=== PATIENT | male | born 1965 | race Caucasian/White ===

== ENCOUNTER 2017-10-05 07:38 | Emergency (ER) | payer OTHER ==
[2017-10-05 07:47] VITALS: TEMP 97.8; BMI 27.4
--- NOTE | 2017-10-05 08:25 | PDOC ---
History of Present Illness - General Chief Complaint: Rectal Bleed Stated Complaint: BLOOD IN STOOL Time Seen by Provider: 10/05/17 07:55 History Source: Patient - History of Present Illness Initial Comments: 10/05/17 08:44 Patient is a 51-year-old male past medical history of hyperlipidemia, appendectomy, who presents emergency department today complaining of 15 days of rectal bleeding. Patient states that he has been seeing a lot of bright red blood in the toilet bowl and on his tissue paper when he wipes. He states that this has never happened to him before. Patient also states that approximately 5 days ago he developed crampy left lower quadrant/suprapubic pain. He states that today the pain is a 5 out of 10 and does not radiate. Admits to loose stools and one episode of vomiting. Denies fevers, chills, shortness of breath, chest pain, nausea, constipation, vomiting blood, frequency, urgency and hematuria. Past History - Travel Traveled outside of the country in the last 30 days: No Close contact w/someone who was outside of country & ill: No - Past Medical History Allergies/Adverse Reactions: Allergies Allergy/AdvReac Type Severity Reaction Status Date / Time No Known Allergies Allergy Verified 10/05/17 07:45 Home Medications: Ambulatory Orders NK [No Known Home Medication] 10/05/17 COPD: No Hypercholesterolemia: Yes - Surgical History Appendectomy: Yes - Suicide/Smoking/Psychosocial Hx Smoking History: Never smoked Information on smoking cessation initiated: No Hx Alcohol Use: No Drug/Substance Use Hx: No Substance Use Type: None Review of Systems - Review of Systems Able to Perform ROS?: Yes Comments:: 10/05/17 08:33 CONSTITUTIONAL: Absent: fever, chills, diaphoresis, generalized weakness, malaise, loss of appetite HEENT: Absent: rhinorrhea, nasal congestion, throat pain, throat swelling, difficulty swallowing, mouth swelling, ear pain, eye pain, visual Changes CARDIOVASCULAR: Absent: chest pain, loss of consciousness, palpitations, irregular heart rate, peripheral edema RESPIRATORY: Absent: cough, shortness of breath, dyspnea with exertion, orthopnea, wheezing, stridor, hemoptysis GASTROINTESTINAL: Present: abdominal pain, vomiting, loose stool, blood in the stool. Absent: abdominal distension, nausea, diarrhea, constipation, hematochezia GENITOURINARY: Absent: dysuria, frequency, urgency, hesitancy, hematuria, flank pain, genital pain MUSCULOSKELETAL: Absent: myalgia, arthralgia, joint swelling SKIN: Absent: rash, itching, pallor HEMATOLOGIC/IMMUNOLOGIC: Absent: easy bleeding, easy bruising, lymphadenopathy, frequent infections ENDOCRINE: Absent: unexplained weight gain, unexplained weight loss, heat intolerance, cold intolerance NEUROLOGIC: Absent: headache, focal weakness or paresthesias, dizziness, unsteady gait, seizure, mental status changes, bladder or bowel incontinence PSYCHIATRIC: Absent: anxiety, depression, suicidal or homicidal ideation, hallucinations. Is the patient limited Polish proficient: No *Physical Exam - Vital Signs Last Vital Signs Temp Pulse Resp BP Pulse Ox 97.8 F 97 H 18 149/78 97 10/05/17 07:43 10/05/17 07:43 10/05/17 07:43 10/05/17 07:43 10/05/17 07:43 - Physical Exam Comments: 10/05/17 08:33 GENERAL: Well developed, well nourished. Awake and alert. No acute distress. HEENT: Normocephalic, atraumatic. PERRLA, EOMI. No conjunctival pallor. Sclera are non- icteric. Moist mucous membranes. Oropharynx is clear. NECK: Supple. Full ROM. No JVD. Carotid pulses 2+ and symmetric, without bruits. No thyromegaly. No lymphadenopathy. CARDIOVASCULAR: Regular rate and rhythm. No murmurs, rubs, or gallops. Distal pulses are 2+ and symmetric. PULMONARY: No evidence of respiratory distress. Lungs clear to auscultation bilaterally. No wheezing, rales or rhonchi. ABDOMINAL: TTP of the LLQ, suprapubic region. Soft. Non-distended. No rebound or guarding. No organomegaly. Normoactive bowel sounds. RECTAL: Good rectal tone. External hemorrhoid present at the 6 o clock position. No internal hemorrhoids felt. Unable to feel prostate. Stool pinkish in color. MUSCULOSKELETAL Normal range of motion at all joints. No bony deformities or tenderness. No CVA tenderness. EXTREMITIES: No cyanosis. No clubbing. No edema. No calf tenderness. SKIN: Warm and dry. Normal capillary refill. No rashes. No jaundice. NEUROLOGICAL: Alert, awake, appropriate. Cranial nerves 2-12 intact. No deficits to light touch and temperature in face, upper extremities and lower extremities. No motor deficits in the in face, upper extremities and lower extremities. Normoreflexic in the upper and lower extremities. Normal speech. Toes are down- going bilaterally. Gait is normal without ataxia. PSYCHIATRIC: Cooperative. Good eye contact. Appropriate mood and affect. 10/05/17 08:48 ED Treatment Course - LABORATORY CBC & Chemistry Diagram: 10/05/17 13:58 10/05/17 09:10 *DC/Admit/Observation/Transfer Diagnosis at time of Disposition: External hemorrhoid, Rectal bleeding Diarrhea Qualifiers: Diarrhea type: unspecified type Qualified Code(s): R19.7 - Diarrhea, unspecified - Discharge Dispostion Disposition: HOME Condition at time of disposition: Stable Admit: No - Referrals Referrals: Judd Myles MD [Staff Physician] - Federico Clark MD [Staff Physician] - - Patient Instructions Printed Discharge Instructions: DI for Rectal Bleeding Additional Instructions: Your lab work today was normal. There was no blood found in your stool on exam. Your CT of the abdomen was normal. You do have external hemorrhoids. Please follow-up with the GI doctor provided within the next week. Follow up with her primary care. Return to the emergency department if you have a new episode of rectal bleeding , worsening abdominal pain, fevers, or have any changes in your symptoms. - Post Discharge Activity Forms/Work/School Notes: Back to Work
[2017-10-05] MEDS ORDERED: ACETAMINOPHEN 325 MG TABLET (FP) PO ONE (08:34)
[2017-10-05] MEDS ORDERED: SODIUM CHLORIDE 1,000 ML IV STA (08:37)
--- NOTE | 2017-10-05 08:58 | PDOC ---
*Physical Exam - Vital Signs Last Vital Signs Temp Pulse Resp BP Pulse Ox 97.8 F 97 H 18 149/78 97 10/05/17 07:43 10/05/17 07:43 10/05/17 07:43 10/05/17 07:43 10/05/17 07:43 - Physical Exam Comments: 10/05/17 08:57 The patient was examined by EVER Lorenzo under my direct supervision. I personally evaluated the patient. I concur with the above findings and the plan of care. ED Treatment Course - LABORATORY CBC & Chemistry Diagram: 10/05/17 13:58 10/05/17 09:10 - ADDITIONAL ORDERS Additional order review: Laboratory Results 10/05/17 08:15 Stool Occult Blood Negative *DC/Admit/Observation/Transfer Diagnosis at time of Disposition: Diarrhea, External hemorrhoid, Rectal bleeding - Discharge Dispostion Disposition: HOME Condition at time of disposition: Stable - Referrals Referrals: Judd Myles MD [Staff Physician] - Federico Clark MD [Staff Physician] - - Patient Instructions Printed Discharge Instructions: DI for Rectal Bleeding Additional Instructions: Your lab work today was normal. There was no blood found in your stool on exam. Your CT of the abdomen was normal. You do have external hemorrhoids. Please follow-up with the GI doctor provided within the next week. Follow up with her primary care. Return to the emergency department if you have a new episode of rectal bleeding , worsening abdominal pain, fevers, or have any changes in your symptoms. - Post Discharge Activity Forms/Work/School Notes: Back to Work
[2017-10-05 09:18] LABS: BASO % 0.4 % (0-2.0); EOS % 1.5 % (0-4.5); HEMATOCRIT 43.6 % (35.4-49); HEMOGLOBIN 14.9 GM/dL (11.7-16.9); LYMPH % 16.4 % (8-40); MCH 29.4 pg (25.7-33.7); MCHC 34.2 g/dl (32.0-35.9); MEAN CELL VOLUME 85.9 fl (80-96); MEAN PLT VOLUME 9.1 fl (7.5-11.1); MONO % 6.9 % (3.8-10.2); NEUT % 74.8 % (42.8-82.8); PLATELET COUNT 194 K/MM3 (134-434); RBC 5.08 M/mm3 (4.00-5.60); RDW 13.4 % (11.9-15.9); WHITE BLOOD COUNT 8.8 K/mm3 (4.0-10.0)
[2017-10-05] MEDS ORDERED: ACETAMINOPHEN 325 MG TABLET (FP) ONE (09:26)
[2017-10-05 09:36] LABS: INR 1.02 (0.82-1.09); PROTHROMBIN TIME (PATIENT) 11.5 SEC (9.98-11.88)
[2017-10-05 09:57] LABS: ALBUMIN 3.8 g/dl (3.4-5.0); ANION GAP 8 (8-16); BILIRUBIN,TOTAL 0.4 mg/dL (0.2-1.0); BLOOD UREA NITROGEN 14 mg/dL (7-18); CALCIUM 8.4 mg/dL (8.5-10.1); CHLORIDE 106 mmol/L (98-107); CO2 27 mmol/L (21-32); CREATININE 0.7 mg/dL (0.7-1.3); GLUCOSE,RANDOM 121 mg/dL (74-106); POTASSIUM 3.5 mmol/L (3.5-5.1); SGOT/AST 20 U/L (15-37); SGPT/ALT 27 U/L (12-78); SODIUM 141 mmol/L (136-145); TOT PROT 7.2 g/dl (6.4-8.2)
[2017-10-05 09:58] LABS: ALK PHOS 100 U/L (45-117)
[2017-10-05 14:07] LABS: BASO % 0.3 % (0-2.0); EOS % 1.4 % (0-4.5); HEMATOCRIT 44.3 % (35.4-49); LYMPH % 19.5 % (8-40); MCH 28.9 pg (25.7-33.7); MCHC 33.9 g/dl (32.0-35.9); MEAN CELL VOLUME 85.4 fl (80-96); MONO % 7.7 % (3.8-10.2); NEUT % 71.1 % (42.8-82.8); PLATELET COUNT 205 K/MM3 (134-434); RBC 5.19 M/mm3 (4.00-5.60); WHITE BLOOD COUNT 8.9 K/mm3 (4.0-10.0)
[2017-10-05 14:30] VITALS: BP 136/70; PULSE 89
== END 2017-10-05 14:29 | disposition home or self-care (01) ==
LOC: JER 07:38
PROC: 3E0337Z Introduction of Electrolytic and Water Balance Substance into Peripheral Vein, Percutaneous Approach (ICD-10-PCS; principal; 2017-10-05)
DX: K64.9 Unspecified hemorrhoids (principal); R19.7 Diarrhea, unspecified
CPT/HCPCS: 36415; 74177-TC; 80053; 82272; 83605; 83690; 85025; 85610; 96360; 99283-25; J7030

== ENCOUNTER 2021-10-13 13:49 | Emergency (ER) | payer OTHER ==
[2021-10-13 14:21] VITALS: BP 137/90; PULSE 125; BMI 24.0
[2021-10-13] MEDS ORDERED: SODIUM CHLORIDE 1,905 ML IV ONE (14:44)
[2021-10-13] MEDS ORDERED: ACETAMINOPHEN 1000 MG/100 ML BAG IVPB ONE (14:47)
[2021-10-13] MEDS ORDERED: ACETAMINOPHEN INJECTION 100 ML IVPB ONE (15:06)
[2021-10-13 16:34] LABS: VENOUS BASE EXCESS -0.4 mmol/L (-2-2); VENOUS O2 SATURATION 94.9 % (70-80); VENOUS PCO2 39.9 mmHg (38-52); VENOUS PH 7.402 (7.310-7.410)
[2021-10-13 16:42] VITALS: TEMP 99.8
[2021-10-13 16:42] LABS: HEMATOCRIT 41.9 % (35.4-49); HEMOGLOBIN 14.5 GM/dL (11.7-16.9); MCH 28.7 pg (25.7-33.7); MCHC 34.7 g/dl (32.0-35.9); MEAN CELL VOLUME 82.7 fl (80-96); MEAN PLT VOLUME 9.5 fl (7.5-11.1); PLATELET COUNT 217 10^3/uL (134-434); RBC 5.06 M/mm3 (4.00-5.60); RDW 13.5 % (11.9-15.9); WHITE BLOOD COUNT 15.2 K/mm3 (4.0-10.0)
[2021-10-13 16:52] LABS: INR 1.19 (0.83-1.09); PROTHROMBIN TIME (PATIENT) 13.7 SEC (9.7-13.0)
[2021-10-13 16:54] LABS: ACTIVATED PTT 28.6 SECONDS (25.2-36.5)
[2021-10-13 17:00] LABS: CHLORIDE 99 mmol/L (98-107); SODIUM 135 mmol/L (136-145)
[2021-10-13 17:01] LABS: CALCIUM 8.7 mg/dL (8.5-10.1)
[2021-10-13 17:02] LABS: ANION GAP 10 MMOL/L (8-16); BLOOD UREA NITROGEN 16.2 mg/dL (7-18); CO2 26 mmol/L (21-32); GLUCOSE,RANDOM 195 mg/dL (74-106)
[2021-10-13 17:05] LABS: SGOT/AST 22 U/L (15-37); SGPT/ALT 31 U/L (13-61)
[2021-10-13 17:07] LABS: BILIRUBIN,TOTAL 0.6 mg/dL (0.2-1); TOT PROT 7.8 g/dl (6.4-8.2)
[2021-10-13 17:08] LABS: ALK PHOS 118 U/L (45-117)
[2021-10-13 17:49] LABS: EPI CELLS 4 /uL (0-25.1); HYALINE CASTS 1 /uL (0-3.1); URINE APPEARANCE CLEAR; URINE BACTERIA 2 /uL (0-1359); URINE BILIRUBIN NEGATIVE (NEGATIVE); URINE COLOR YELLOW; URINE GLUCOSE (UA) NEGATIVE (NEGATIVE); URINE KETONE TRACE (NEGATIVE); URINE LEUK ESTERASE NEGATIVE (NEGATIVE); URINE NITRITE NEGATIVE (NEGATIVE); URINE PROTEIN 1+ (NEGATIVE); URINE RBC 3 /uL (0-23.9); URINE UROBILINOGEN 0.2 mg/dL (0.2-1.0); URINE WBC 4 /uL (0-25.8)
[2021-10-13 18:13] LABS: PLATELET ESTIMATE ADEQUATE
[2021-10-15 10:13] LABS: SARS-CoV-2 NAA Not Detected (Not Detected)
== END 2021-10-13 19:59 | disposition home or self-care (01) ==
LOC: JER 13:49
PROC: 3E0333Z Introduction of Anti-inflammatory into Peripheral Vein, Percutaneous Approach (ICD-10-PCS; principal; 2021-10-13)
PROC: 3E0337Z Introduction of Electrolytic and Water Balance Substance into Peripheral Vein, Percutaneous Approach (ICD-10-PCS; 2021-10-13)
DX: R11.2 Nausea with vomiting, unspecified (principal); R19.7 Diarrhea, unspecified; R50.9 Fever, unspecified
CPT/HCPCS: 36415; 71045-TC-FY; 74177-TC; 80053; 81003; 82553; 82803; 83605; 85025; 85610; 85730; 86850; 86900; 86901; 87040; 87086; 93005; 93010; 99285-25; C9803-CS; U0003; U0005

== ENCOUNTER 2022-04-03 16:04 | Emergency (ER) | payer OTHER ==
[2022-04-03 16:13] VITALS: BP 120/78; PULSE 90; RESP 16; TEMP 98.2; BMI 25.0
[2022-04-03] MEDS ORDERED: KETOROLAC TROMETHAMINE 30 MG/1 ML VIAL IM ONE (18:14)
[2022-04-03] MEDS ORDERED: LIDOCAINE 5% TOPICAL PATCH TP ONE (18:29)
[2022-04-03] MEDS ORDERED: KETOROLAC TROMETHAMINE 30 MG/1 ML VIAL ONE (18:34)
[2022-04-03] MEDS ORDERED: LIDOCAINE 5% TOPICAL PATCH ONE (18:34)
[2022-04-04] MEDS ORDERED: LIDOCAINE PATCH REMOVAL MC SCH (06:30)
== END 2022-04-03 19:05 | disposition home or self-care (01) ==
LOC: JER 16:04
PROC: 3E023GC Introduction of Other Therapeutic Substance into Muscle, Percutaneous Approach (ICD-10-PCS; principal; 2022-04-03)
DX: S40.011A Contusion of right shoulder, initial encounter (principal); W19.XXXA Unspecified fall, initial encounter
CPT/HCPCS: 70450-TC; 72125-TC; 73030-TC-RT-FY; 99284-25

== ENCOUNTER 2022-04-26 09:23 | Emergency (ER) | payer OTHER ==
[2022-04-26 11:11] VITALS: BP 144/96; PULSE 88; RESP 18; TEMP 98.4; BMI 25.7
== END 2022-04-26 11:53 | disposition home or self-care (01) ==
LOC: JERFT 09:23 → JER 09:23 → JERFT 11:53
DX: M25.511 Pain in right shoulder (principal)
CPT/HCPCS: 99283-25